=== PATIENT | male | born 1935 | race Caucasian/White ===

== ENCOUNTER 2017-04-19 09:41 | Emergency (ER) | payer MEDICARE, OTHER ==
[~2017-04-19] VITALS: Ht 165.1 cm; Wt 87.0 kg
[~2017-04-19 09:41] MED LIST: CIPR500T4 PO; ESOM20CA; LOPE2CAP PO; METR500T PO; PAIN MED
[2017-04-19 09:45] VITALS: Ht 165.1 cm; Wt 87.0 kg
--- NOTE | 2017-04-19 10:25 | ERD ---
ER Documentation Chief Complaint Date/Time DATE: 04/19/17 TIME: 10:23 Chief Complaint dysuria since (MARCOS TRAVIS PA-C) HPI This is a 81-year-old male who presents the emergency department today with his son for complaints of pain with urination for the past 2 days. States that he takes pain medication for his knees but he is unsure of the name. Denies any abdominal pain however he does state that he has diarrhea. States he has felt chilled but denies any fevers, vomiting. Denies any testicular pain. (MARCOS TRAVIS PA-C) ROS All systems reviewed and are negative except as per history of present illness. (MARCOS TRAVIS PA-C) Medications Home Meds Active Scripts Dicyclomine Hcl* (Bentyl*) 10 Mg Capsule, 10 MG PO QID, #30 CAP Prov:MARCOS TRAVIS PA-C 04/19/17 Ciprofloxacin Hcl* (Ciprofloxacin Hcl*) 500 Mg Tablet, 500 MG PO BID for 10 Days , TAB Prov:MARCOS TRAVIS PA-C 04/19/17 Loperamide Hcl* (Imodium*) 2 Mg Capsule, 2 MG PO .AFTER EA LOOSE BM Y for DIARRHEA, #15 TAB Prov:NENA FU MD 06/21/16 Ciprofloxacin Hcl* (Ciprofloxacin Hcl*) 500 Mg Tablet, 500 MG PO BID for 7 Days , TAB Prov:NENA FU MD 06/21/16 Metronidazole* (Flagyl*) 500 Mg Tablet, 500 MG PO TID for 10 Days, TAB Prov:OSEI LUNA PA-C 06/17/16 Reported Medications Esomeprazole Mag Trihydrate (Nexium) 20 Mg Capsule. 11/29/10 Esomeprazole Mag Trihydrate (Nexium) 20 Mg Capsule. 11/29/10 [Pain Med] No Conflict Check 11/29/10 Allergies Allergies: Coded Allergies: No Known Allergies (Verified Allergy, Mild, 11/30/10) PMhx/Soc History of Surgery: No Anesthesia Reaction: No Hx Neurological Disorder: No Hx Respiratory Disorders: No Hx Cardiac Disorders: No Hx Psychiatric Problems: No Hx Miscellaneous Medical Probl: Yes (TURP) Hx Alcohol Use: No Hx Substance Use: No Hx Tobacco Use: No (MARCOS TRAVIS PA-C) Physical Exam Vitals Vital Signs Date Time Temp Pulse Resp B/P Pulse Ox O2 Delivery O2 Flow Rate FiO2 04/19/17 09:45 98.2 86 18 134/82 99 (NENA FU MD) Physical Exam Const: pleasant, NAD Head: Atraumatic Eyes: Normal Conjunctiva ENT: Normal External Ears, Nose and Mouth. Neck: Full range of motion..~ No meningismus. Resp: Clear to auscultation bilaterally Cardio: Regular rate and rhythm, no murmurs Abd: Soft, non tender, non distended. Normal bowel sounds Skin: No petechiae or rashes Back: No midline or flank tenderness Ext: No cyanosis, or edema Neur: Awake and alert Psych: Normal Mood and Affect (MARCOS TRAVIS PA-C) Results 24 hrs Laboratory Tests Test 04/19/17 10:33 Urine Color YELLOW Urine Clarity SLIGHTLY CLOUDY Urine pH 6.0 Urine Specific [place] 1.011 Urine Ketones NEGATIVEmg/dL Urine Nitrite NEGATIVEmg/dL Urine Bilirubin NEGATIVEmg/dL Urine Urobilinogen 2+mg/dL Urine Leukocyte Esterase 3+Kimani/ul Urine Microscopic RBC 37/HPF Urine Microscopic WBC 145/HPF Urine Bacteria FEW/HPF Urine Hemoglobin 2+mg/dL Urine Glucose NEGATIVEmg/dL Urine Total Protein 1+mg/dl (NENA FU MD) Procedures/MDM This is a 81-year-old male who presents the emergency department today complaining of pain with urination for the past 2 days. Patient also was reporting some diarrhea however on physical exam he has no abdominal pain. He is afebrile and otherwise well-appearing. I did obtain a UA. UA shows 3+ leukocyte esterase. Greater than 145 microscopic white blood cells. 37 microscopic red blood cells. Urine was sent for culture. Patient has no abdominal pain on physical exam. I do not feel he requires imaging at this time. He is afebrile and otherwise well-appearing. He has no CVA tenderness. Low suspicion for pyelonephritis or septic stone. Patient does have some blood in his urine and at this time I cannot rule out a kidney stone. I have explained this to the patient. Symptoms at at this time is consistent with urinary tract infection and diarrhea. Patient will be given a prescription for Cipro and Bentyl. Patient declined any pain medication here in the emergency department stating that he had some at home. At this time the patient is stable for discharge and outpatient management. Patient should follow up with their PCP in the next 1-2 days. They may return to the emergency department sooner for any persistent or worsening of symptoms. Patient and son understood and agreed with the plan. Discussed the patient with Dr. Fu and he is in agreement with the plan. (MARCOS TRAVIS PA-C) Physician note- Subjective-patient presents with dysuria and diarrhea. Agree with detailed history and physical of mid-level provider. Objective-. Afebrile with benign abdomen. Urinalysis shows signs of urinary tract infection. Assessment-multiple complaints including dysuria and diarrhea and signs of urinary tract infection Plan-treated with Cipro and close follow-up and return precautions as directed and aftercare instructions. (NENA FU MD) Departure Diagnosis: Primary Impression: UTI (urinary tract infection) Urinary tract infection type: site unspecified Hematuria presence: with hematuria Qualified Code: N39.0 - Urinary tract infection with hematuria, site unspecified Additional Impression: Diarrhea Diarrhea type: unspecified type Qualified Code: R19.7 - Diarrhea, unspecified type Condition: Fair MARCOS TRAVIS PA-C Apr 19, 2017 10:25 NENA FU MD Apr 19, 2017 11:12 Objective-. Afebrile with benign abdomen. Urinalysis shows signs of urinary tract infection. Assessment-multiple complaints including dysuria and diarrhea and signs of urinary tract infection Plan-treated with Cipro and close follow-up and return precautions as directed and aftercare instructions. (NENA FU MD) MARCOS TRAVIS PA-C Apr 19, 2017 10:25 NENA FU MD Apr 19, 2017 11:12
[2017-04-19 11:06] LABS: ADD UMIC YES; UR ASCORBIC ACID 40 mg/dL (NEGATIVE); UR BACTERIA FEW /HPF (NONE SEEN); UR BILIRUBIN (Dip) NEGATIVE (NEGATIVE); UR BLOOD (Dip) 2+ mg/dL (NEGATIVE); UR CLARITY SLIGHTLY CLOUDY (CLEAR); UR COLOR YELLOW (YELLOW); UR GLUCOSE (Dip) NEGATIVE (NEGATIVE); UR KETONES (Dip) NEGATIVE (NEGATIVE); UR LEUKOCYTE ESTERASE (Dip) 3+ Leu/ul (NEGATIVE); UR NITRITE (Dip) NEGATIVE (NEGATIVE); UR RBC 37 /HPF (0-5); UR SPECIFIC GRAVITY (Dip) 1.011 (1.003-1.030); UR TOTAL PROTEIN (Dip) 1+ mg/dl (NEGATIVE); UR UROBILINOGEN (Dip) 2+ mg/dL (NEGATIVE)
[2017-04-19] MEDS ORDERED: CIPR500T4 PO (11:16)
[2017-04-19] MEDS ORDERED: DICY10CA60 PO (11:16)
== END 2017-04-19 11:35 | disposition home or self-care (01) ==
LOC: FTE 09:41
DX: N39.0 Urinary tract infection, site not specified (principal); R19.7 Diarrhea, unspecified
CPT/HCPCS: 81001; 87086; 99284

== ENCOUNTER 2017-05-03 22:24 | Emergency (ER) | payer MEDICARE, OTHER ==
[~2017-05-03] VITALS: Ht 167.6 cm; Wt 85.0 kg
[~2017-05-03 22:24] MED LIST changes: +DICY10CA60 PO
[2017-05-03 22:34] VITALS: Ht 167.6 cm; Wt 85.0 kg
[2017-05-03] MEDS ORDERED: SODIUM CHLORIDE 0.9% 1L BAG IV* STA (23:59)
[2017-05-04] MEDS ORDERED: CEFTRIAXONE 2 GM/50 ML (PMX) 50 ML IVPB ONE
--- NOTE | 2017-05-04 00:05 | ERD ---
ER Documentation Chief Complaint Chief Complaint bib self, cc: dysuria x 10 days, antibiotics taken with no help HPI Patient is a 81-year-old male who presents with gradual onset, constant, moderate dysuria for the last 2 weeks that became worse 2 days ago. He reports having subjective fever since yesterday. He denies vomiting. He denies back pain. He was treated with a 10 day course of ciprofloxacin 2 weeks ago, but states that he did not ever have resolution of symptoms. He does have history of benign prostatic hyperplasia. He denies difficulty urinating. He was noted to have a urine culture that was resistant to ciprofloxacin on April 22, and he was called to return to the ER, but apparently did not return. ROS All systems reviewed and are negative except as per history of present illness. Medications Home Meds Active Scripts Cephalexin* (Keflex*) 500 Mg Capsule, 500 MG PO QID for 10 Days, CAP Prov:GABY TOTH MD 05/04/17 Dicyclomine Hcl* (Bentyl*) 10 Mg Capsule, 10 MG PO QID, #30 CAP Prov:MARCOS TRAVIS PA-C 04/19/17 Ciprofloxacin Hcl* (Ciprofloxacin Hcl*) 500 Mg Tablet, 500 MG PO BID for 10 Days , TAB Prov:MARCOS TRAVIS PA-C 04/19/17 Loperamide Hcl* (Imodium*) 2 Mg Capsule, 2 MG PO .AFTER EA LOOSE BM Y for DIARRHEA, #15 TAB Prov:NENA FU MD 06/21/16 Ciprofloxacin Hcl* (Ciprofloxacin Hcl*) 500 Mg Tablet, 500 MG PO BID for 7 Days , TAB Prov:NENA FU MD 06/21/16 Metronidazole* (Flagyl*) 500 Mg Tablet, 500 MG PO TID for 10 Days, TAB Prov:OSEI LUNA PA-C 06/17/16 Reported Medications Esomeprazole Mag Trihydrate (Nexium) 20 Mg Capsule. 11/29/10 Esomeprazole Mag Trihydrate (Nexium) 20 Mg Capsule. 11/29/10 [Pain Med] No Conflict Check 11/29/10 Allergies Allergies: Coded Allergies: No Known Allergies (Verified Allergy, Mild, 11/30/10) PMhx/Soc Past medical history: BPH Past surgical history: Prostate surgery, right knee surgery Social history: Denies tobacco, occasional alcohol History of Surgery: No Anesthesia Reaction: No Hx Neurological Disorder: No Hx Respiratory Disorders: No Hx Cardiac Disorders: No Hx Psychiatric Problems: No Hx Miscellaneous Medical Probl: Yes (TURP) Hx Alcohol Use: No Hx Substance Use: No Hx Tobacco Use: No FmHx Family History: No coronary disease, No diabetes Physical Exam Vitals Vital Signs Date Time Temp Pulse Resp B/P Pulse Ox O2 Delivery O2 Flow Rate FiO2 05/04/17 02:35 99.1 86 20 118/64 99 Room Air 05/04/17 01:15 81 20 121/81 100 Room Air 05/03/17 22:34 99.5 93 19 129/90 100 Physical Exam Const: Alert, no acute distress Head: Atraumatic Eyes: Normal Conjunctiva, No pallor, no icterus ENT: Normal External Ears, Nose and Mouth. Mucous membranes moist Neck: Full range of motion..~ No meningismus. Resp: Clear to auscultation bilaterally, No wheezes, no rales Cardio: Regular rate and rhythm, no murmurs Abd: Soft, non tender, non distended. Back: No midline or flank tenderness Ext: No cyanosis, or edema Neur: Awake and alert, Cranial nerves II through XII intact bilaterally, strength and sensation full in 4 extremities Psych: Normal Mood and Affect Result Diagram: 05/04/17 0010 05/04/17 0010 Results 24 hrs Laboratory Tests Test 05/04/17 00:10 White Blood Count 8.910^3/ul Red Blood Count 4.6210^6/ul Hemoglobin 13.9g/dl Hematocrit 40.3% Mean Corpuscular Volume 87.2fl Mean Corpuscular Hemoglobin 30.1pg Mean Corpuscular Hemoglobin Concent 34.5g/dl Red Cell Distribution Width 13.2% Platelet Count 45276^3/UL Mean Platelet Volume 10.7fl Neutrophils % 74.3% Lymphocytes % 11.3% Monocytes % 13.8% Eosinophils % 0.1% Basophils % 0.2% Nucleated Red Blood Cells % 0.0/100WBC Neutrophils # 6.610^3/ul Lymphocytes # 1.010^3/ul Monocytes # 1.210^3/ul Eosinophils # 0.010^3/ul Basophils # 0.010^3/ul Nucleated Red Blood Cells # 0.010^3/ul Urine Color YELLOW Urine Clarity CLEAR Urine pH 6.0 Urine Specific [place] 1.009 Urine Ketones NEGATIVEmg/dL Urine Nitrite NEGATIVEmg/dL Urine Bilirubin NEGATIVEmg/dL Urine Urobilinogen NEGATIVEmg/dL Urine Leukocyte Esterase 1+Kimani/ul Urine Microscopic RBC 2/HPF Urine Microscopic WBC 14/HPF Urine Bacteria FEW/HPF Urine Hemoglobin NEGATIVEmg/dL Urine Glucose NEGATIVEmg/dL Urine Total Protein NEGATIVEmg/dl Sodium Level 135mmol/L Potassium Level 3.9mmol/L Chloride Level 103mmol/L Carbon Dioxide Level 24mmol/L Anion Gap 12 Blood Urea Nitrogen 13mg/dl Creatinine 1.08mg/dl Glucose Level 136mg/dl Lactic Acid Level 1.5mmol/L Calcium Level 8.8mg/dl Total Bilirubin 0.4mg/dl Direct Bilirubin 0.00mg/dl Indirect Bilirubin 0.4mg/dl Aspartate Amino Transf (AST/SGOT) 35IU/L Alanine Aminotransferase (ALT/SGPT) 53IU/L Alkaline Phosphatase 87IU/L Total Protein 7.4g/dl Albumin 3.5g/dl Globulin 3.90g/dl Albumin/Globulin Ratio 0.89 Current Medications Medications (Trade) Dose Ordered Sig/Cande Route PRN Reason Start Time Stop Time Status Last Admin Dose Admin Sodium Chloride 2640 ml 2,640 ml BOLUS OVER 2 HOURS STAT IV* 05/03/17 23:59 05/04/17 00:03 DC 05/04/17 00:30 Ceftriaxone Sodium (Rocephin) 50 ml @ 100 mls/hr ONCE ONCE IVPB 05/04/17 00:00 05/04/17 00:29 DC 05/04/17 00:00 Ibuprofen (Motrin) 400 mg ONCE ONCE PO 05/04/17 01:00 05/04/17 01:00 DC Procedures/MDM MDM: Patient is a 81-year-old male who was recently treated for lower urinary tract infection with a 10 day course of ciprofloxacin. The patient's urine culture showed resistance to ciprofloxacin, and the patient did not respond to call back to change his antibiotics. He now presents with ongoing symptoms and subjective fever. He has benign abdominal exam and no signs of urinary retention. His labs are unremarkable, and there are no signs of sepsis. After reviewing the patient's urine culture sensitivities, it was determined that he would most appropriately be treated with a single dose of Rocephin in the ER followed by 10 day course of Keflex. He was advised on return precautions in case of ongoing fever or vomiting. Blood culture was sent in case of occult bacteremia. On reassessment after receiving IV fluids, the patient was well- appearing and agree with plan for home treatment. Departure Diagnosis: Primary Impression: Urinary tract infection Urinary tract infection type: site unspecified Hematuria presence: without hematuria Qualified Code: N39.0 - Urinary tract infection without hematuria, site unspecified Condition: GABY Carvalho MD May 04, 2017 00:04
[2017-05-04 00:41] LABS: BASOPHILS % 0.2 % (0.0-2.0); EOSINOPHILS % 0.1 % (0.0-7.0); HEMATOCRIT 40.3 % (42.0-52.0); HEMOGLOBIN 13.9 g/dl (14.0-18.0); LYMPHOCYTES % 11.3 % (15.0-51.0); MEAN CORPUSCULAR HEMOGLOBIN 30.1 pg (29.0-33.0); MEAN CORPUSCULAR HGB CONC 34.5 g/dl (32.0-37.0); MEAN CORPUSCULAR VOLUME 87.2 fl (82.0-101.0); MEAN PLATELET VOLUME 10.7 fl (7.4-10.4); MONOCYTE # 1.2 10^3/ul (0.3-0.9); MONOCYTES % 13.8 % (0.0-11.0); NEUTROPHIL # 6.6 10^3/ul (1.6-7.5); NEUTROPHILS % 74.3 % (39.0-77.0); PLATELET COUNT 152 10^3/UL (140-415); RED BLOOD COUNT 4.62 10^6/ul (4.70-6.10); RED CELL DISTRIBUTION WIDTH 13.2 % (11.5-14.5); WHITE BLOOD COUNT 8.9 10^3/ul (4.8-10.8)
[2017-05-04 00:51] LABS: ADD UMIC YES; UR ASCORBIC ACID NEGATIVE (NEGATIVE); UR BACTERIA FEW /HPF (NONE SEEN); UR BILIRUBIN (Dip) NEGATIVE (NEGATIVE); UR BLOOD (Dip) NEGATIVE (NEGATIVE); UR CLARITY CLEAR (CLEAR); UR COLOR YELLOW (YELLOW); UR GLUCOSE (Dip) NEGATIVE (NEGATIVE); UR KETONES (Dip) NEGATIVE (NEGATIVE); UR LEUKOCYTE ESTERASE (Dip) 1+ Leu/ul (NEGATIVE); UR NITRITE (Dip) NEGATIVE (NEGATIVE); UR RBC 2 /HPF (0-5); UR SPECIFIC GRAVITY (Dip) 1.009 (1.003-1.030); UR TOTAL PROTEIN (Dip) NEGATIVE (NEGATIVE); UR UROBILINOGEN (Dip) NEGATIVE (NEGATIVE)
[2017-05-04 00:59] LABS: ALBUMIN/GLOBULIN RATIO 0.89
[2017-05-04] MEDS ORDERED: IBUPROFEN 200 MG TAB PO ONE (01:00)
[2017-05-04 01:04] LABS: ALBUMIN 3.5 g/dl (3.3-4.9); BILIRUBIN,INDIRECT 0.4 mg/dl (0-1.1); BILIRUBIN,TOTAL 0.4 mg/dl (0.2-1.3); CALCIUM 8.8 mg/dl (8.4-10.2); CREATININE 1.08 mg/dl (0.61-1.24); POTASSIUM 3.9 mmol/L (3.5-5.1); TOTAL PROTEIN 7.4 g/dl (6.1-8.1)
[2017-05-04] MEDS ORDERED: CEPH-443 PO (01:18)
[2017-05-04 02:35] VITALS: BP 118/64; PULSE 86; RESP 20; TEMP 99.1
== END 2017-05-04 02:35 | disposition home or self-care (01) ==
LOC: E/R 22:24
DX: N39.0 Urinary tract infection, site not specified (principal)
CPT/HCPCS: 36415; 80053; 81001; 83605; 85025; 87040; 87086; 96374; 99284; J0696; J7030